=== PATIENT | female | born 1955 | race Native Hawaiian/Other Pacific Islander ===

== ENCOUNTER 2017-01-04 17:19 | Emergency (ER) | payer OTHER ==
[~2017-01-04] VITALS: Ht 170.2 cm; Wt 108.9 kg
[~2017-01-04 17:19] MED LIST: AMLO2.5T PO; CARV6.25 PO; CLON0.1T16 PO; CLON0.5T36 PO; DIGOXIN0.125 MG PO; ELIQUIS5 MG OR; ELIQUIS5 MG PO; FURO20TA67 PO; LABETALOL100 MG PO; LOSA50TA PO; TRAZ100T OR; TRAZ100T PO; VALSARTAN320 MG PO; WARFARIN5 MG PO; ZESTRIL40 MG PO
[2017-01-04 22:10] VITALS: BP 178/80; TEMP 98
== END 2017-01-04 22:11 | disposition home or self-care (01) ==
LOC: ED 17:19
DX: R23.8 Other skin changes (principal)
CPT/HCPCS: 99281

== ENCOUNTER 2017-01-25 11:29 | Outpatient (CLI) | payer OTHER | END 2017-01-25 19:15 | disposition home or self-care (01) | LOC: LABW 11:29 | DX: Z79.01 Long term (current) use of anticoagulants (principal); I48.0 Paroxysmal atrial fibrillation; Z51.81 Encounter for therapeutic drug level monitoring | CPT/HCPCS: 36415; 85610 ==

== ENCOUNTER 2017-01-30 13:14 | Outpatient (CLI) | payer OTHER | END 2017-01-30 14:14 | disposition home or self-care (01) | LOC: LABW 13:14 | DX: Z79.01 Long term (current) use of anticoagulants (principal); Z79.899 Other long term (current) drug therapy; I48.0 Paroxysmal atrial fibrillation; Z51.81 Encounter for therapeutic drug level monitoring | CPT/HCPCS: 36415; 85610 ==

== ENCOUNTER 2017-02-06 09:04 | Outpatient (CLI) | payer OTHER | END 2017-02-06 19:10 | disposition home or self-care (01) | LOC: LABW 09:04 | DX: Z79.01 Long term (current) use of anticoagulants (principal); Z79.899 Other long term (current) drug therapy; I48.0 Paroxysmal atrial fibrillation; Z51.81 Encounter for therapeutic drug level monitoring | CPT/HCPCS: 36415; 85610 ==

== ENCOUNTER 2017-02-22 08:04 | Outpatient (CLI) | payer OTHER | END 2017-02-22 19:03 | disposition home or self-care (01) | LOC: LABW 08:04 | DX: Z79.01 Long term (current) use of anticoagulants (principal); Z79.899 Other long term (current) drug therapy; I48.0 Paroxysmal atrial fibrillation; Z51.81 Encounter for therapeutic drug level monitoring | CPT/HCPCS: 36415; 85610 ==

== ENCOUNTER 2017-03-01 09:44 | Outpatient (CLI) | payer OTHER | END 2017-03-01 19:12 | disposition home or self-care (01) | LOC: LABW 09:44 | DX: I48.0 Paroxysmal atrial fibrillation (principal); Z79.899 Other long term (current) drug therapy; Z79.01 Long term (current) use of anticoagulants | CPT/HCPCS: 36415; 85610 ==

== ENCOUNTER 2017-03-08 10:18 | Outpatient (CLI) | payer OTHER | END 2017-03-08 11:30 | disposition home or self-care (01) | LOC: LABW 10:18 | DX: Z79.01 Long term (current) use of anticoagulants (principal); Z79.899 Other long term (current) drug therapy; I48.0 Paroxysmal atrial fibrillation; Z51.81 Encounter for therapeutic drug level monitoring | CPT/HCPCS: 36415; 85610 ==

== ENCOUNTER 2017-03-10 09:44 | Outpatient (CLI) | payer OTHER | END 2017-03-10 19:30 | disposition home or self-care (01) | LOC: LABW 09:44 | DX: Z79.01 Long term (current) use of anticoagulants (principal); Z79.899 Other long term (current) drug therapy; I48.0 Paroxysmal atrial fibrillation; Z51.81 Encounter for therapeutic drug level monitoring | CPT/HCPCS: 36415; 85610 ==

== ENCOUNTER 2017-03-17 11:56 | Outpatient (CLI) | payer OTHER | END 2017-03-17 13:00 | disposition home or self-care (01) | LOC: LABW 11:56 | DX: Z79.01 Long term (current) use of anticoagulants (principal); Z79.899 Other long term (current) drug therapy; I48.0 Paroxysmal atrial fibrillation; Z51.81 Encounter for therapeutic drug level monitoring | CPT/HCPCS: 36415; 85610 ==

== ENCOUNTER 2017-03-24 11:52 | Outpatient (CLI) | payer OTHER | END 2017-03-24 19:04 | disposition home or self-care (01) | LOC: LABW 11:52 | DX: Z79.01 Long term (current) use of anticoagulants (principal); Z79.899 Other long term (current) drug therapy; I48.0 Paroxysmal atrial fibrillation; Z51.81 Encounter for therapeutic drug level monitoring | CPT/HCPCS: 36415; 85610 ==

== ENCOUNTER 2017-03-30 19:45 | Emergency (ER) | payer OTHER ==
[~2017-03-30] VITALS: Ht 170.2 cm; Wt 112.0 kg
[2017-03-30 21:44] VITALS: BP 150/72; TEMP 98.4
== END 2017-03-30 21:50 | disposition home or self-care (01) ==
LOC: ED 19:45
DX: M72.2 Plantar fascial fibromatosis (principal)
CPT/HCPCS: 99283

== ENCOUNTER 2017-04-10 08:51 | Outpatient (CLI) | payer OTHER | END 2017-04-10 10:00 | disposition home or self-care (01) | LOC: LABW 08:51 | DX: Z79.01 Long term (current) use of anticoagulants (principal); Z79.899 Other long term (current) drug therapy; I48.0 Paroxysmal atrial fibrillation; Z51.81 Encounter for therapeutic drug level monitoring | CPT/HCPCS: 36415; 85610 ==

== ENCOUNTER 2017-04-17 09:52 | Outpatient (CLI) | payer OTHER | END 2017-04-17 19:11 | disposition home or self-care (01) | LOC: LABW 09:52 | DX: Z79.01 Long term (current) use of anticoagulants (principal); Z79.899 Other long term (current) drug therapy; Z51.81 Encounter for therapeutic drug level monitoring; I48.0 Paroxysmal atrial fibrillation | CPT/HCPCS: 36415; 85610 ==

== ENCOUNTER 2017-05-01 10:08 | Outpatient (CLI) | payer OTHER | END 2017-05-01 11:10 | disposition home or self-care (01) | LOC: LABW 10:08 | DX: Z79.01 Long term (current) use of anticoagulants (principal); Z79.899 Other long term (current) drug therapy; I48.0 Paroxysmal atrial fibrillation; Z51.81 Encounter for therapeutic drug level monitoring | CPT/HCPCS: 36415; 85610 ==

== ENCOUNTER 2017-05-08 11:06 | Outpatient (CLI) | payer OTHER | END 2017-05-08 12:10 | disposition home or self-care (01) | LOC: LABW 11:06 | DX: Z79.01 Long term (current) use of anticoagulants (principal); Z79.899 Other long term (current) drug therapy; I48.0 Paroxysmal atrial fibrillation; Z51.81 Encounter for therapeutic drug level monitoring | CPT/HCPCS: 36415; 85610 ==

== ENCOUNTER 2017-05-15 07:56 | Outpatient (CLI) | payer OTHER | END 2017-05-15 09:00 | disposition home or self-care (01) | LOC: LABW 07:56 | DX: Z79.01 Long term (current) use of anticoagulants (principal); Z79.899 Other long term (current) drug therapy; I48.0 Paroxysmal atrial fibrillation; Z51.81 Encounter for therapeutic drug level monitoring | CPT/HCPCS: 36415; 85610 ==

== ENCOUNTER 2017-05-19 08:13 | Outpatient (CLI) | payer OTHER | END 2017-05-19 09:15 | disposition home or self-care (01) | LOC: LABW 08:13 | DX: Z79.01 Long term (current) use of anticoagulants (principal); Z79.899 Other long term (current) drug therapy; I48.0 Paroxysmal atrial fibrillation; Z51.81 Encounter for therapeutic drug level monitoring | CPT/HCPCS: 36415; 85610 ==

== ENCOUNTER 2017-05-26 08:19 | Outpatient (CLI) | payer OTHER | END 2017-05-26 19:13 | disposition home or self-care (01) | LOC: LABW 08:19 | DX: Z79.01 Long term (current) use of anticoagulants (principal); Z79.899 Other long term (current) drug therapy; I48.0 Paroxysmal atrial fibrillation; Z51.81 Encounter for therapeutic drug level monitoring | CPT/HCPCS: 36415; 85610 ==

== ENCOUNTER 2017-06-02 07:44 | Outpatient (CLI) | payer OTHER | END 2017-06-02 08:45 | disposition home or self-care (01) | LOC: LABW 07:44 | DX: Z79.01 Long term (current) use of anticoagulants (principal); Z79.899 Other long term (current) drug therapy; I48.0 Paroxysmal atrial fibrillation; Z51.81 Encounter for therapeutic drug level monitoring | CPT/HCPCS: 36415; 85610 ==

== ENCOUNTER 2017-06-05 07:45 | Outpatient (CLI) | payer OTHER | END 2017-06-05 19:18 | disposition home or self-care (01) | LOC: LABW 07:45 | DX: Z79.01 Long term (current) use of anticoagulants (principal); Z79.899 Other long term (current) drug therapy; I48.0 Paroxysmal atrial fibrillation; Z51.81 Encounter for therapeutic drug level monitoring | CPT/HCPCS: 36415; 85610 ==

== ENCOUNTER 2017-06-12 07:47 | Outpatient (CLI) | payer OTHER | END 2017-06-12 08:50 | disposition home or self-care (01) | LOC: LABW 07:47 | DX: Z79.01 Long term (current) use of anticoagulants (principal); Z79.899 Other long term (current) drug therapy; I48.0 Paroxysmal atrial fibrillation; Z51.81 Encounter for therapeutic drug level monitoring | CPT/HCPCS: 36415; 85610 ==

== ENCOUNTER 2017-06-19 08:04 | Outpatient (CLI) | payer OTHER | END 2017-06-19 19:29 | disposition home or self-care (01) | LOC: LABW 08:04 | DX: Z79.01 Long term (current) use of anticoagulants (principal); Z79.899 Other long term (current) drug therapy; I48.0 Paroxysmal atrial fibrillation; Z51.81 Encounter for therapeutic drug level monitoring | CPT/HCPCS: 36415; 85610 ==

== ENCOUNTER 2017-08-02 08:11 | Outpatient (CLI) | payer OTHER | END 2017-08-02 09:15 | disposition home or self-care (01) | LOC: LABW 08:11 | DX: Z79.01 Long term (current) use of anticoagulants (principal); Z79.899 Other long term (current) drug therapy; I48.0 Paroxysmal atrial fibrillation; Z51.81 Encounter for therapeutic drug level monitoring | CPT/HCPCS: 36415; 85610 ==

== ENCOUNTER 2017-08-05 22:21 | Emergency (ER) | payer OTHER ==
[~2017-08-05] VITALS: Ht 170.2 cm; Wt 111.6 kg
[2017-08-05 23:36] LABS: PLATELET COUNT 203 K/uL (152-353)
[2017-08-06 00:01] LABS: POTASSIUM 3.6 mmol/L (3.6-5.2)
[2017-08-06 00:46] VITALS: BP 151/73; TEMP 98.3
== END 2017-08-06 00:47 | disposition home or self-care (01) ==
LOC: ED 22:21
DX: B34.9 Viral infection, unspecified (principal); I10 Essential (primary) hypertension
CPT/HCPCS: 36415; 80053; 82150; 83690; 85027; 99283

== ENCOUNTER 2017-08-15 09:35 | Outpatient (CLI) | payer OTHER | END 2017-08-15 10:35 | disposition home or self-care (01) | LOC: LABW 09:35 | DX: Z79.01 Long term (current) use of anticoagulants (principal); I48.0 Paroxysmal atrial fibrillation; Z79.899 Other long term (current) drug therapy; Z51.81 Encounter for therapeutic drug level monitoring | CPT/HCPCS: 36415; 85610 ==

== ENCOUNTER 2017-08-28 09:40 | Emergency (ER) | payer OTHER ==
[~2017-08-28] VITALS: Ht 170.2 cm; Wt 108.0 kg
[2017-08-28 09:50] VITALS: TEMP 97.8
[2017-08-28 10:33] LABS: PLATELET COUNT 141 K/uL (152-353)
[2017-08-28 10:45] LABS: POTASSIUM 4.1 mmol/L (3.6-5.2); SODIUM 139 mmol/L (136-145)
[2017-08-28 14:25] VITALS: BP 184/79
== END 2017-08-28 14:25 | disposition short-term general hospital (02) ==
LOC: ED 09:40
DX: I50.9 Heart failure, unspecified (principal)
CPT/HCPCS: 36415; 80053; 83880; 85027; 85610; 99283; J1940

== ENCOUNTER 2017-10-20 08:26 | Outpatient (CLI) | payer OTHER | END 2017-10-20 18:57 | disposition home or self-care (01) | LOC: LABW 08:26 | DX: Z79.01 Long term (current) use of anticoagulants (principal); Z51.81 Encounter for therapeutic drug level monitoring; Z79.899 Other long term (current) drug therapy; I48.0 Paroxysmal atrial fibrillation | CPT/HCPCS: 36415; 85610 ==

== ENCOUNTER 2017-10-27 13:07 | Outpatient (CLI) | payer OTHER | END 2017-10-27 22:14 | disposition home or self-care (01) | LOC: LABW 13:07 | DX: Z79.01 Long term (current) use of anticoagulants (principal); Z79.899 Other long term (current) drug therapy; I48.0 Paroxysmal atrial fibrillation; Z51.81 Encounter for therapeutic drug level monitoring | CPT/HCPCS: 36415; 85610 ==

== ENCOUNTER 2017-11-14 14:28 | Outpatient (CLI) | payer OTHER | END 2017-11-14 15:30 | disposition home or self-care (01) | LOC: LABW 14:28 | DX: Z79.01 Long term (current) use of anticoagulants (principal); Z79.899 Other long term (current) drug therapy; Z51.81 Encounter for therapeutic drug level monitoring; I48.0 Paroxysmal atrial fibrillation | CPT/HCPCS: 36415; 85610 ==

== ENCOUNTER 2017-11-21 10:55 | Outpatient (CLI) | payer OTHER | END 2017-11-21 19:04 | disposition home or self-care (01) | LOC: LABW 10:55 | DX: Z79.01 Long term (current) use of anticoagulants (principal); Z79.899 Other long term (current) drug therapy; Z51.81 Encounter for therapeutic drug level monitoring; I48.0 Paroxysmal atrial fibrillation | CPT/HCPCS: 36415; 85610 ==

== ENCOUNTER 2017-11-23 07:56 | Outpatient (CLI) | payer OTHER | END 2017-11-23 09:00 | disposition home or self-care (01) | LOC: LABW 07:56 | DX: Z79.01 Long term (current) use of anticoagulants (principal); Z51.81 Encounter for therapeutic drug level monitoring; I48.0 Paroxysmal atrial fibrillation | CPT/HCPCS: 36415; 85610 ==

== ENCOUNTER 2017-11-27 07:51 | Outpatient (CLI) | payer OTHER | END 2017-11-27 21:07 | disposition home or self-care (01) | LOC: LABW 07:51 | DX: Z79.01 Long term (current) use of anticoagulants (principal); Z79.899 Other long term (current) drug therapy; Z51.81 Encounter for therapeutic drug level monitoring; I48.0 Paroxysmal atrial fibrillation | CPT/HCPCS: 36415; 85610 ==

== ENCOUNTER 2017-12-06 08:20 | Outpatient (CLI) | payer OTHER | END 2017-12-06 19:17 | disposition home or self-care (01) | LOC: LABW 08:20 | DX: Z79.01 Long term (current) use of anticoagulants (principal); Z79.899 Other long term (current) drug therapy; Z51.81 Encounter for therapeutic drug level monitoring; I48.0 Paroxysmal atrial fibrillation | CPT/HCPCS: 36415; 85610 ==

== ENCOUNTER 2017-12-20 08:25 | Outpatient (CLI) | payer OTHER | END 2017-12-20 18:45 | disposition home or self-care (01) | LOC: LABW 08:25 | DX: Z79.01 Long term (current) use of anticoagulants (principal); Z79.899 Other long term (current) drug therapy; Z51.81 Encounter for therapeutic drug level monitoring; I48.0 Paroxysmal atrial fibrillation | CPT/HCPCS: 36415; 85610 ==

== ENCOUNTER 2017-12-27 08:12 | Outpatient (CLI) | payer OTHER | END 2017-12-27 21:38 | disposition home or self-care (01) | LOC: LABW 08:12 | DX: Z79.01 Long term (current) use of anticoagulants (principal); Z79.899 Other long term (current) drug therapy; Z51.81 Encounter for therapeutic drug level monitoring; I48.0 Paroxysmal atrial fibrillation | CPT/HCPCS: 36415; 85610 ==

== ENCOUNTER 2018-01-09 09:03 | Outpatient (CLI) | payer OTHER | END 2018-01-09 19:59 | disposition home or self-care (01) | LOC: LABW 09:03 | DX: Z79.01 Long term (current) use of anticoagulants (principal); Z79.899 Other long term (current) drug therapy; Z51.81 Encounter for therapeutic drug level monitoring; I48.0 Paroxysmal atrial fibrillation; R60.0 Localized edema; R06.02 Shortness of breath | CPT/HCPCS: 36415; 85610 ==

== ENCOUNTER 2018-01-09 10:16 | Outpatient (CLI) | payer OTHER | END 2018-01-09 20:00 | disposition home or self-care (01) | LOC: RAD 10:16 | DX: R60.0 Localized edema (principal); R06.02 Shortness of breath ==

== ENCOUNTER 2018-01-16 09:45 | Outpatient (CLI) | payer OTHER | END 2018-01-16 18:00 | disposition home or self-care (01) | LOC: LABW 09:45 | DX: Z79.01 Long term (current) use of anticoagulants (principal); Z79.899 Other long term (current) drug therapy; Z51.81 Encounter for therapeutic drug level monitoring; I48.0 Paroxysmal atrial fibrillation | CPT/HCPCS: 36415; 85610 ==

== ENCOUNTER 2018-01-23 08:15 | Outpatient (CLI) | payer OTHER | END 2018-01-23 22:53 | disposition home or self-care (01) | LOC: LABW 08:15 | DX: Z79.01 Long term (current) use of anticoagulants (principal); Z79.899 Other long term (current) drug therapy; I48.0 Paroxysmal atrial fibrillation; Z51.81 Encounter for therapeutic drug level monitoring | CPT/HCPCS: 36415; 85610 ==

== ENCOUNTER 2018-02-06 09:51 | Outpatient (CLI) | payer OTHER | END 2018-02-06 21:56 | disposition home or self-care (01) | LOC: LABW 09:51 | DX: Z79.01 Long term (current) use of anticoagulants (principal); Z79.899 Other long term (current) drug therapy; Z51.81 Encounter for therapeutic drug level monitoring; I48.0 Paroxysmal atrial fibrillation | CPT/HCPCS: 36415; 85610 ==

== ENCOUNTER 2018-02-22 00:01 | Emergency (ER) | payer OTHER ==
[~2018-02-22] VITALS: Ht 170.2 cm; Wt 111.1 kg
[2018-02-22 00:17] VITALS: BP 187/67; TEMP 98.6
[2018-02-22 00:57] LABS: PLATELET COUNT 151 K/uL (152-353)
[2018-02-22 01:10] LABS: POTASSIUM 3.7 mmol/L (3.6-5.2)
== END 2018-02-22 02:20 | disposition home or self-care (01) ==
LOC: ED 00:01
DX: R60.9 Edema, unspecified (principal)
CPT/HCPCS: 36415; 80053; 83735; 83880; 85027; 85379; 96374; 96375; 99283; J1885; J1940

== ENCOUNTER 2018-02-26 13:39 | Outpatient (CLI) | payer OTHER | END 2018-02-26 20:49 | disposition home or self-care (01) | LOC: LABW 13:39 → LAB 13:39 → LABW 20:49 | DX: Z79.01 Long term (current) use of anticoagulants (principal); Z51.81 Encounter for therapeutic drug level monitoring; I48.0 Paroxysmal atrial fibrillation | CPT/HCPCS: 36415; 85610 ==

== ENCOUNTER 2018-03-08 09:52 | Outpatient (CLI) | payer OTHER | END 2018-03-08 22:05 | disposition home or self-care (01) | LOC: LABW 09:52 | DX: Z79.01 Long term (current) use of anticoagulants (principal); I48.0 Paroxysmal atrial fibrillation; Z51.81 Encounter for therapeutic drug level monitoring | CPT/HCPCS: 36415; 85610 ==

== ENCOUNTER 2018-03-13 08:54 | Outpatient (CLI) | payer OTHER | END 2018-03-13 19:14 | disposition home or self-care (01) | LOC: LABW 08:54 | DX: Z79.01 Long term (current) use of anticoagulants (principal); Z51.81 Encounter for therapeutic drug level monitoring; I48.0 Paroxysmal atrial fibrillation | CPT/HCPCS: 36415; 85610 ==

== ENCOUNTER 2018-03-16 14:08 | Observation (INO) | payer OTHER ==
[~2018-03-16] VITALS: Ht 170.2 cm; Wt 109.4 kg
[2018-03-16 14:19] VITALS: BP 195/90; TEMP 97.5
[2018-03-16 14:52] LABS: PLATELET COUNT 158 K/uL (152-353)
[2018-03-16 14:57] LABS: POTASSIUM 3.9 mmol/L (3.6-5.2)
[2018-03-16] MEDS ORDERED: NIFE30TA PO (14:58)
[2018-03-16] MEDS ORDERED: WARF7.5T5 PO (14:58)
[2018-03-16] MEDS ORDERED: FURO20TA67 PO ×2 (14:59)
[2018-03-16 19:25] VITALS: BP 159/74; TEMP 97.8
[2018-03-17] VITALS: BP 178/83; TEMP 98.2
[2018-03-17 00:42] VITALS: BP 194/90; TEMP 97.5; Ht 170.2 cm; Wt 109.4 kg
[2018-03-17 04:00] VITALS: BP 170/79; TEMP 98.8
[2018-03-17 07:10] LABS: PLATELET COUNT 154 K/uL (152-353)
[2018-03-17 07:23] LABS: POTASSIUM 3.7 mmol/L (3.6-5.2)
[2018-03-17 08:00] VITALS: BP 177/78; TEMP 97.6
[2018-03-17 12:00] VITALS: BP 158/78; TEMP 97.8
== END 2018-03-17 16:42 | disposition home or self-care (01) ==
LOC: ED 14:08 → MED/SURG 19:10
DX: R51 Headache (principal); I16.0 Hypertensive urgency; R09.81 Nasal congestion; I48.91 Unspecified atrial fibrillation; I25.10 Atherosclerotic heart disease of native coronary artery without angina pectoris; I48.92 Unspecified atrial flutter
CPT/HCPCS: 36415; 80053; 84484; 85027; 85379; 85610; 93005; 96374; 96375; 99220; 99284; G0378; J0595; J1200; J1885; J2405

== ENCOUNTER 2018-04-30 08:02 | Outpatient (CLI) | payer OTHER ==
[~2018-04-30 08:02] MED LIST changes: +NIFE30TA PO; +WARF7.5T5 PO
== END 2018-04-30 19:41 | disposition home or self-care (01) ==
LOC: LABW 08:02
DX: Z79.01 Long term (current) use of anticoagulants (principal); I48.0 Paroxysmal atrial fibrillation; Z51.81 Encounter for therapeutic drug level monitoring
CPT/HCPCS: 36415; 85610

== ENCOUNTER 2018-05-05 12:36 | Emergency (ER) | payer OTHER ==
[~2018-05-05] VITALS: Ht 172.7 cm; Wt 99.8 kg
[2018-05-05 13:40] LABS: POTASSIUM 3.6 mmol/L (3.6-5.2); SODIUM 140 mmol/L (136-145)
[2018-05-05 14:41] VITALS: BP 139/90; TEMP 98
== END 2018-05-05 14:43 | disposition home or self-care (01) ==
LOC: ED 12:36
PROVIDERS: Family Medicine
DX: R07.89 Other chest pain (principal); R06.02 Shortness of breath; R42 Dizziness and giddiness; I48.91 Unspecified atrial fibrillation
CPT/HCPCS: 36415; 80053; 82550; 82553; 84484; 85610; 93005; 96374; 99283; J1940